=== PATIENT | male | born 1945 | race Caucasian/White ===

== ENCOUNTER → 2017-02-22 | Outpatient (CLI) | payer MEDICARE, BC, OTHER ==
[~2017-02-22] MED LIST: PROSCAR 5MG5 MG PO
== END ==
LOC: COL.RAD 10:14
DX: R22.1 Localized swelling, mass and lump, neck (principal); D48.7 Neoplasm of uncertain behavior of other specified sites

== ENCOUNTER → 2017-03-08 | Outpatient (CLI) | payer MEDICARE, BC, OTHER ==
[~2017-03-08] VITALS: Ht 182.9 cm; Wt 104.5 kg
[2017-03-08 11:40] VITALS: BP 139/86; PULSE 65
== END ==
LOC: COL.RAD 10:51
DX: R22.1 Localized swelling, mass and lump, neck (principal); M25.611 Stiffness of right shoulder, not elsewhere classified; H61.23 Impacted cerumen, bilateral; H40.059 Ocular hypertension, unspecified eye; Z98.890 Other specified postprocedural states
CPT/HCPCS: 13756

== ENCOUNTER → 2022-12-27 | Outpatient (CLI) | payer MEDICARE, BC, OTHER | LOC: COL.VAS 13:19 | DX: I82.612 Acute embolism and thrombosis of superficial veins of left upper extremity (principal); Z96.612 Presence of left artificial shoulder joint ==

== ENCOUNTER 2024-03-09 04:38 | Emergency (ER) | payer MEDICARE, BC, OTHER ==
[~2024-03-09] VITALS: Ht 180.3 cm; Wt 104.5 kg
[2024-03-09 04:44] VITALS: TEMP 98
[2024-03-09] MEDS ORDERED: COZAAR 50MG50 MG/TAB PO (04:54)
[2024-03-09] MEDS ORDERED: LR 1,000 ML IV ONE (05:15)
[2024-03-09] MEDS ORDERED: Acetaminophen 500 MG TAB PO ONE (05:15)
[2024-03-09 05:28] LABS: BASO % 0.6 % (0.0-2.0); EOS # 0.2 K/mm3 (0.0-0.7); EOS % 3.9 % (0.0-4.0); GRAN # 3.3 K/mm3 (1.4-6.5); GRAN % 53.2 % (42.2-75.2); HEMATOCRIT 43.1 % (42.0-52.0); HEMOGLOBIN 14.2 g/dl (13.5-18.0); LYMPH % 32.9 % (20.0-51.0); MEAN CELL VOLUME 95 fl (80.0-100.0); MEAN CORPUSCULAR HEMOGLOBIN 31 pg (27-31); MEAN CORPUSCULAR HGB CONC 33 g/dl (33.0-37.0); MEAN PLATELET VOLUME 10.6 fl (7.4-10.4); MONO # 0.6 K/mm3 (0.1-0.6); MONO % 9.2 % (1.7-9.3); PLATELET COUNT 213 K/mm3 (130-400); RED BLOOD COUNT 4.52 M/mm3 (4.20-5.60); REDCELL DISTRIBUTION WIDTH-CV 13.4 % (11.5-14.5)
[2024-03-09 05:34] LABS: INR 1.1 (0.8-3.0); PROTHROMBIN TIME 11.8 SECONDS (9.7-12.8)
[2024-03-09 05:36] LABS: PARTIAL THROMBOPLASTIN TIME 33.8 SECONDS (26.0-37.0)
[2024-03-09 05:53] LABS: ALANINE AMINOTRANSFERASE 24 U/L (0-55); ALBUMIN 3.5 g/dL (3.4-4.8); ALKALINE PHOSPHATASE 59 U/L (40-150); ANION GAP 9 mmol/L (7-16); AST,SGOT 18 U/L (5-34); BILIRUBIN,TOTAL 0.5 mg/dL (0.2-1.2); BLOOD UREA NITROGEN 25 mg/dL (8-26); CHLORIDE 107 mEq/L (98-107); CREATININE, serum 0.88 mg/dL (0.72-1.25); GLUCOSE 98 mg/dL (70-99); POTASSIUM 4.1 mEq/L (3.5-4.5); SODIUM 138 mEq/L (136-145); TOTAL PROTEIN 6.9 g/dl (6.2-8.1)
[2024-03-09 06:20] LABS: TROPONIN-I < 0.010 ng/mL (0.00-0.033)
[2024-03-09 06:48] VITALS: BP 175/87; PULSE 50
== END 2024-03-09 07:00 | disposition home or self-care (01) ==
LOC: COL.ER 04:38
PROVIDERS: Emergency Medicine
DX: I10 Essential (primary) hypertension (principal); Z79.899 Other long term (current) drug therapy
CPT/HCPCS: J7120